=== PATIENT | female | born 2000 | race Caucasian/White ===

== ENCOUNTER 2023-10-27 12:26 | Emergency (ER) | payer OTHER ==
[2023-10-27 12:34] VITALS: BMI 25.7
[2023-10-27] MEDS ORDERED: LIDOCAINE 5% TOPICAL PATCH ONE (13:01)
[2023-10-27] MEDS ORDERED: ACETAMINOPHEN INJECTION 100 ML IVPB ONE (13:01)
[2023-10-27] MEDS: ACETAMINOPHEN 1000 MG/100 ML BAG IVPB ONE (13:18)
[2023-10-27] MEDS: LIDOCAINE 5% TOPICAL PATCH TP ONE (13:18)
[2023-10-27] MEDS: LACTATED RINGERS SOLUTION 1000 ML INFUS.BAG IV ONE (13:19)
[2023-10-27 13:25] LABS: BASO % 0.2 % (0-2.0); HEMATOCRIT 36.4 % (32.4-45.2); HEMOGLOBIN 12.1 GM/dL (10.7-15.3); LYMPH % 4.1 % (8-40); MCH 30.4 pg (25.7-33.7); MCHC 33.2 g/dl (32.0-36.0); MEAN CELL VOLUME 91.3 fl (80-96); MONO % 6.9 % (3.8-10.2); NEUT % 88.8 % (42.8-82.8); PLATELET COUNT 248 10^3/uL (134-434); RBC 3.99 M/mm3 (3.60-5.2); WHITE BLOOD COUNT 17.7 K/mm3 (4.0-10.0)
[2023-10-27 13:27] LABS: EPI CELLS >36 /uL (0-25.1); HYALINE CASTS 2 /uL (0-3.1); PH,URINE 5.5 (5.0-8.0); URINE APPEARANCE CLOUDY; URINE BACTERIA >9,000 /uL (0-1359); URINE BILIRUBIN NEGATIVE (NEGATIVE); URINE COLOR DK YELLOW; URINE GLUCOSE (UA) NEGATIVE (NEGATIVE); URINE KETONE 1+ (NEGATIVE); URINE LEUK ESTERASE 3+ (NEGATIVE); URINE NITRITE POSITIVE (NEGATIVE); URINE PROTEIN 1+ (NEGATIVE); URINE RBC 42 /uL (0-23.9); URINE WBC 3352 /uL (0-25.8)
[2023-10-27 14:32] LABS: POTASSIUM 5.5 mmol/L (3.5-5.1)
[2023-10-27 14:34] LABS: ALBUMIN 3.6 g/dl (3.4-5.0); CALCIUM 8.3 mg/dL (8.5-10.1)
[2023-10-27 14:35] LABS: BLOOD UREA NITROGEN 14.8 mg/dL (7-18)
[2023-10-27 14:39] LABS: TOT PROT 7.6 g/dl (6.4-8.2)
[2023-10-27 14:40] LABS: BILIRUBIN,TOTAL 0.8 mg/dL (0.2-1)
[2023-10-27] MEDS ORDERED: CEFTRIAXONE 1 GM/50 ML BAG ONE (15:06)
[2023-10-27 15:41] VITALS: BP 103/55; PULSE 99; RESP 18; TEMP 98.1
[2023-10-27] MEDS ORDERED: LIDOCAINE PATCH REMOVAL MC ONE (22:00)
== END 2023-10-27 16:02 | disposition home or self-care (01) ==
LOC: JER 12:26
PROC: 3E033NZ Introduction of Analgesics, Hypnotics, Sedatives into Peripheral Vein, Percutaneous Approach (ICD-10-PCS; principal; 2023-10-27)
PROC: 3E03329 Introduction of Other Anti-infective into Peripheral Vein, Percutaneous Approach (ICD-10-PCS; 2023-10-27)
DX: N39.0 Urinary tract infection, site not specified (principal); R10.9 Unspecified abdominal pain
CPT/HCPCS: 36415; 74176-TC; 80053; 81003; 84703; 85025; 87086; 87186; 99284-25; J0131

== ENCOUNTER 2023-10-28 22:06 | Inpatient (IN) | payer OTHER ==
[2023-10-28 22:33] LABS: EPI CELLS 36 /uL (0-25.1); HYALINE CASTS 3 /uL (0-3.1); URINE APPEARANCE CLOUDY; URINE BACTERIA 448 /uL (0-1359); URINE BILIRUBIN NEGATIVE (NEGATIVE); URINE COLOR YELLOW; URINE GLUCOSE (UA) NEGATIVE (NEGATIVE); URINE KETONE 3+ (NEGATIVE); URINE LEUK ESTERASE 2+ (NEGATIVE); URINE NITRITE NEGATIVE (NEGATIVE); URINE PROTEIN 1+ (NEGATIVE); URINE RBC 28 /uL (0-23.9); URINE WBC 304 /uL (0-25.8)
[2023-10-28] MEDS ORDERED: ACETAMINOPHEN INJECTION 100 ML IVPB ONE (23:02)
[2023-10-28] MEDS ORDERED: ONDANSETRON 4 MG/2 ML VIAL ONE (23:03)
[2023-10-28] MEDS ORDERED: CEFTRIAXONE 1 GM/50 ML BAG ONE (23:03)
[2023-10-28] MEDS: LACTATED RINGERS SOLUTION 1000 ML INFUS.BAG IV ONE (23:32)
[2023-10-28] MEDS: ACETAMINOPHEN 1000 MG/100 ML BAG IVPB ONE (23:32)
[2023-10-28] MEDS: ONDANSETRON 4 MG/2 ML VIAL IVPUSH ONE (23:32)
[2023-10-28 23:37] LABS: HEMATOCRIT 33.6 % (32.4-45.2); HEMOGLOBIN 11.3 GM/dL (10.7-15.3); MCH 30.2 pg (25.7-33.7); MCHC 33.6 g/dl (32.0-36.0); MEAN PLT VOLUME 7.6 fl (7.5-11.1); PLATELET COUNT 249 10^3/uL (134-434); RBC 3.73 M/mm3 (3.60-5.2); RDW 13.3 % (11.6-15.6); WHITE BLOOD COUNT 15.7 K/mm3 (4.0-10.0)
[2023-10-28 23:55] LABS: POTASSIUM 3.8 mmol/L (3.5-5.1)
[2023-10-28 23:57] LABS: BLOOD UREA NITROGEN 9.6 mg/dL (7-18); CALCIUM 8.1 mg/dL (8.5-10.1)
[2023-10-29] LABS: CREATININE 0.7 mg/dL (0.55-1.3)
[2023-10-29 00:02] LABS: BILIRUBIN,TOTAL 0.3 mg/dL (0.2-1); TOT PROT 6.8 g/dl (6.4-8.2)
[2023-10-29 00:04] LABS: ANISOCYTOSIS 0; MACROCYTOSIS 0
[2023-10-29] MEDS: LACTATED RINGERS SOLUTION 1000 ML INFUS.BAG IV ONE (00:38)
[2023-10-29 05:07] VITALS: BMI 24.1
[2023-10-29] MEDS: PIPERACILLIN/TAZOB 3.375 GM 3.375 GM in DEXTROSE 5%-WATER - 50 ML IVPB SCH (06:29)
[2023-10-29] MEDS: ENOXAPARIN NA (PORCINE) 40 MG/0.4 ML DISP.SYRIN SQ SCH (09:38)
[2023-10-29 10:11] LABS: BASO % 0.4 % (0-2.0); HEMOGLOBIN 10.7 GM/dL (10.7-15.3); LYMPH % 14.8 % (8-40); MCH 30.1 pg (25.7-33.7); MCHC 33.3 g/dl (32.0-36.0); MEAN CELL VOLUME 90.4 fl (80-96); MEAN PLT VOLUME 8.5 fl (7.5-11.1); NEUT % 72.8 % (42.8-82.8); PLATELET COUNT 234 10^3/uL (134-434); RBC 3.54 M/mm3 (3.60-5.2); RDW 13.1 % (11.6-15.6); WHITE BLOOD COUNT 12.3 K/mm3 (4.0-10.0)
[2023-10-29 10:32] LABS: POTASSIUM 3.8 mmol/L (3.5-5.1)
[2023-10-29 10:37] LABS: ALBUMIN 2.7 g/dl (3.4-5.0)
[2023-10-29 10:38] LABS: BLOOD UREA NITROGEN 9.8 mg/dL (7-18); CALCIUM 7.9 mg/dL (8.5-10.1)
[2023-10-29 10:40] LABS: CREATININE 0.6 mg/dL (0.55-1.3); PHOSPHOROUS 2.7 mg/dL (2.5-4.9)
[2023-10-29 10:44] LABS: BILIRUBIN,TOTAL 0.3 mg/dL (0.2-1)
[2023-10-29 10:46] LABS: TOT PROT 6.1 g/dl (6.4-8.2)
[2023-10-29] MEDS: ACETAMINOPHEN/CAFFEINE/BUTALBITAL 1 TAB PO ONE (12:31)
[2023-10-29] MEDS ORDERED: ACETAMINOPHEN/CAFFEINE/BUTALBITAL 1 TAB PO PRN (14:55)
[2023-10-29] MEDS ORDERED: ACETAMINOPHEN 325 MG TABLET (FP) PO PRN (18:26)
[2023-10-29 21:24] LABS: HIV INTERPRETATION NEGATIVE (NEGATIVE)
[2023-10-30] MEDS ORDERED: PIPERACILLIN/TAZOB 3.375 GM 3.375 GM in DEXTROSE 5%-WATER - 50 ML IVPB SCH (03:00)
[2023-10-30 10:28] LABS: BASO % 0.4 % (0-2.0); EOS % 0.9 % (0-4.5); HEMATOCRIT 35.5 % (32.4-45.2); HEMOGLOBIN 11.8 GM/dL (10.7-15.3); LYMPH % 16.4 % (8-40); MCH 30.2 pg (25.7-33.7); MCHC 33.3 g/dl (32.0-36.0); MEAN CELL VOLUME 90.6 fl (80-96); MEAN PLT VOLUME 8.3 fl (7.5-11.1); MONO % 8.5 % (3.8-10.2); NEUT % 73.8 % (42.8-82.8); PLATELET COUNT 308 10^3/uL (134-434); RBC 3.92 M/mm3 (3.60-5.2); RDW 13.2 % (11.6-15.6)
[2023-10-30 10:46] LABS: POTASSIUM 4.1 mmol/L (3.5-5.1)
[2023-10-30 10:51] LABS: BLOOD UREA NITROGEN 9.4 mg/dL (7-18); CALCIUM 8.9 mg/dL (8.5-10.1)
[2023-10-30 10:54] LABS: CREATININE 0.7 mg/dL (0.55-1.3)
[2023-10-30 10:56] LABS: BILIRUBIN,TOTAL 0.3 mg/dL (0.2-1)
[2023-10-30 12:25] VITALS: BP 111/76; PULSE 85; RESP 20; TEMP 98.4
[2023-11-03 04:11] LABS: FIBROSIS SCORE. 0.05 (0.00-0.21); HCV ALPHA 2 MACRO CHART 206 mg/dL (110-276); NECRO.INFLAM ACT.SCORE 0.36 (0.00-0.17); NECROINFLAM. ACTIVITY GRADE A1-Minimal activity (.)
== END 2023-10-30 11:14 | disposition home or self-care (01) | DRG 463 ==
LOC: JER 22:06 → JERBED 10-29 00:23 → J8W 10-29 03:58 → OBSVTOIN 10-29 04:29
PROVIDERS: ADMIT Internal Medicine; ATTEND Nurse Practitioner Family
DX: N10 Acute pyelonephritis (principal); B96.29 Other Escherichia coli [E. coli] as the cause of diseases classified elsewhere; R94.5 Abnormal results of liver function studies; N39.0 Urinary tract infection, site not specified
CPT/HCPCS: 36415; 80053; 81003; 82172; 82977; 83010; 83735; 83883; 84100; 84460; 84703; 85025; 86705; 86706; 87086; 87340; 87389; 93005; 93010; 99285-25; G0378; J0131